=== PATIENT | female | born 1945 | race Caucasian/White ===

== ENCOUNTER 2018-08-13 04:40 | Inpatient (IN) | payer MEDICARE, OTHER ==
[~2018-08-13] VITALS: Ht 157.5 cm; Wt 51.3 kg
[~2018-08-13 04:40] MED LIST: NITROFURANTOIN100 MG PO; PREMARIN42.5 GM VAGINAL
[2018-08-13] MEDS ORDERED: ASPIRIN81 MG PO (05:02)
[2018-08-13] MEDS ORDERED: PRAVACHOL40 MG PO (05:02)
[2018-08-13] MEDS ORDERED: PROBIOTIC1 EAC4 PO (05:02)
[2018-08-13] MEDS ORDERED: SUDOGEST30 MG PO (05:03)
[2018-08-13] MEDS ORDERED: TYLENOL325 M1 PO (05:04)
--- NOTE | 2018-08-13 08:00 | NUR ---
73YR OLD WOMAN ADMITTED FROM ER VIA STRETCHER ACCOMPANIED BY . PT IS ALERT, ORIENTED ABLE TO STAND WITH SBA AND MOVE ONTO BED, WARM BLANKET FOR COMFORT, WRETCHING WITH ANY MOVEMENT, LITTLE RELIEF FROM ZOFRAN GIVEN IN ER. IV TAPED SECURELY TO RAC. IVF PATENT. DENIES NEED TO VOID, ORIENTED TO ROOM AND CALL LIGHT. DENIES NEEDS SITTING AT BEDSIDE.
--- NOTE | 2018-08-13 08:20 | NUR ---
SPOKE WITH DR CONDON AND RECIEVED ORDER FOR PHENERGAN IV. ASSISTED PT INTO BATHROOM TO VOID, CONT. TO HAVE SEVERE NAUSEA AND WRETCHING WITH ANY MOVEMENT. PHENERGAN GIVEN.
--- NOTE | 2018-08-13 08:40 | NUR ---
New admit to the floor. Pt alert and oriented x3. Pt recently received phenergan from Dishtank Operator, Rebeka. Pt states nausea is improving. Pt has no needs at this time. Call light within reach.
--- NOTE | 2018-08-13 08:54 | NUR ---
PT REPORTS NAUSEA MUCH IMPROVED, RESTING COMFORTABLY ON BED. DENIES ANY NEDDS. CALL LIGHT IN REACH.
--- NOTE | 2018-08-13 12:01 | NUR ---
ADMIN GI COCKTAIL PER PT REQUEST. PT REPORTS UPSET STOMACH.
--- NOTE | 2018-08-13 13:19 | EKG ---
[facility] [address] [place], [place] [address] Signed Normal sinus rhythm Normal ECG When compared with ECG of 19-APR-2016 23:39, No significant change was found Confirmed by REAL CONDON DO ([id number]) on 08/13/2018 1:19:20 PM Electronically Signed By: REAL CONDON DO 08/13/18 1319 PATIENT NAME: SHELTON JARAMILLOYN PERRINTON Electrocardiogram DATE OF : 49 PHYSICIAN: REAL CONDON DO REPORT #: [id number] REPORT IS CONFIDENTIAL AND NOT TO BE RELEASED WITHOUT AUTHORIZATION
--- NOTE | 2018-08-13 18:09 | NUR ---
PT A&OX3. NPO. STANDBY ASSIST. PRN MORPHINE AND ZOFRAN. NAUSEA AND ABD PAIN IMPROVED. LR@125ML/HR. PT CALLS STAFF APPROPRIATELY.
--- NOTE | 2018-08-13 19:00 | NUR ---
SHIFT REPORT RECEIVED FROM DAYSARFT BRADEN CAMP AT BEDSIDE. PT RESTING IN BED, AWAKE, RR WNL. NO DISTRESS NOTED. PT REPORTS NAUSEA AND PAIN IS IMPROVING, WILL CONTINUE TO MONITOR. IV LR AT 125 MLS/HR, IV SITE WNL. PT UP SBA TO VOID, INSTRUCTED TO USE CALL LIGHT WHEN READY TO RETURN TO BED. PT VERBALIZED UNDERSTANDING.
--- NOTE | 2018-08-13 19:27 | NUR ---
patient pulled bathroom string call light and got back into bed. she resulted in 200. BST and Call light within reach.
--- NOTE | 2018-08-13 20:01 | NUR ---
patient used call light to ask for assistance to the restroom and to sit up in the chair for a while. I got a warm blanket for her and she didnt need anything further at this time. Call light and BST in place.
--- NOTE | 2018-08-13 20:50 | NUR ---
SPOKE TO DR CONDON REGARDING PT'S DIET STATUS. PT NPO WITH EXCEPTION OF SMALL SIPS OF WATER FOR ESOPHAGEAL COMFORT. PT HAS LR INFUSING AT 125MLS/HR. DURING SHIFT REPORT, DAYSHIFT BRADEN GOODEN REPORTED THAT PT GETS LOW BS AT TIMES. DISCUSSED THIS WITH PT. PT STATES, "WHEN I WAS I WAS HIGH BS THEN THEY GAVE ME SHOTS FOR ABOUT A YEAR AND NOW I GET LOW BS SOMETIMES. BUT, I CAN TELL WHEN IT STARTS GETTING LOW". DISCUSSED ALL FINDINGS WITH DR CONDON. NEW TELEPHONE ORDERS READ BACK BY DR CONDON FOR ACCU CHECKS Q6H. NO ADDITIONAL ORDERS.
--- NOTE | 2018-08-13 21:32 | NUR ---
ASSESSMENT COMPLETE. PT A/OX4, RATES PAIN 10/05, BUT DENIES NEED FOR PAIN MEDICATION AT THIS TIME. PT STATES, "I DON'T WANT ANYTHING FOR IT RIGHT NOW, I'LL LETCHA KNOW WHEN". IV SITE WNL, IV FLUIDS HUNG PER MD ORDERS. BOWEL TONES ACTIVE, PT REPORTS NAUSEA IS "BETTER NOW" AND DENIES NEED FOR NAUSEA MEDICATION AT THIS TIME. PT ASSISTED SBA BACK TO BED AFTER VOIDING. NO ADDITIONAL NEEDS, CALL LIGHT IN REACH.
--- NOTE | 2018-08-13 21:45 | NUR ---
DR CONDON MADE AWARE OF PT'S 2100 ACCUCHECK RESULT OF 79. PT DENIES SYMPTOMS OF HYPOGLYCEMIA. NEW VERBAL ORDERS READ BACK FROM DR CONDON FOR D5LR AT 125 MLS/HR.
--- NOTE | 2018-08-13 22:28 | NUR ---
PRN MORPHINE AND PRN ZOFRAN ADMINISTERED TO PT BY HORSE RACING ANALYST AGUSTIN FOR NAUSEA AND ABDOMINAL PAIN. D5LR @ 125 MLS/HR HUNG BY HORSE RACING ANALYST AGUSTIN.
--- NOTE | 2018-08-13 23:24 | NUR ---
PT RESTING IN BED, EYES CLOSED, RR WNL. NO DISTRESS NOTED. PT APPEARS COMFORTABLE. IV FLUIDS INFUSING PER MD ORDERS. CALL LIGHT IN REACH.
--- NOTE | 2018-08-14 01:20 | NUR ---
PT UP SBA TO VOID. PT TOLERATED AMBULATION. PT RETURNED TO BED, DENIES ADDITIONAL NEEDS. CALL LIGHT IN REACH. IV FLUIDS INFUSING PER MD ORDERS, IV SITE WNL.
--- NOTE | 2018-08-14 03:00 | NUR ---
ASSESSMENT COMPLETE, NO NEW CONCERNS OF ISSUES. PT A/OX4, RATES PAIN 6/10 IN ABDOMEN ALONG WIHT MILD NAUSEA. PRN ZOFRAN AND MORPHINE ADMINISTERED. IV FLUIDS INFUSING PER MD ORDERS, IV SITE WNL. 0300 ACCUCHECK RESULT OF 116. PT NPO, BOWEL TONES ACTIVE. PT RECENTLY UP TO VOID, SBA TO BATHROOM. PT NOW RESTING IN BED. VSS AND RECORDED. PT DENIES ADDITIONAL NEEDS, CALL LIGHT IN REACH.
--- NOTE | 2018-08-14 04:40 | NUR ---
PT SLEPT ON AND OFF THIS SHIFT. VSS, PT ON RA, RR WNL. A/O X4, PAIN CONTROLLED WITH PRN MORPHINE. SBA WITH AMBULATION, USES CALL LIGHT APPROPERAITELY. PT NPO WITH EXCEPTION OF SMALL SIPS OF WATER FOR COMFORT. BOWEL TONES ACTIVE, NAUSEA CONTROLLED WITH ZOFRAN. D5LR@125 MLS/HR, IV SITE WNL. Q6H ACCUCHECKS. GI COCKTAIL GIVEN X1.
--- NOTE | 2018-08-14 06:15 | NUR ---
NEW BAG OF IV FLUIDS INFUSING PER MD ORDERS, IV SITE WNL. PRN GI COCKTAIL ALSO ADMINISTERED PER PT REQUEST. NO FURTHER NEEDS, CALL LIGHT IN REACH.
--- NOTE | 2018-08-14 07:01 | NUR ---
1 MG PRN MORPHINE AND PRN ZOFRAN ADMINISTERED FOR 6/10 PAIN IN ABDOMEN AND NAUSEA. IV FLUIDS INFUSING PER MD ORDERS, IV SITE WNL. PT DENIES ADDITIONAL NEEDS, CALL LIGHT IN REACH.
--- NOTE | 2018-08-14 11:10 | NUR ---
ASSUMED CARE FROM REKHA FELICIANO. PT SITTING UP IN BED WATCHING TV. REPORTS 6/10 ABD PAIN AND NAUSEA. MEDICATED WITH IV MORPHINE AND ZOFRAN. PT ALERT AND ORIENTED. ASSESSMENT COMPLETED. IV INFUSING WNL. CALL LIGHT WITHIN REACH.
--- NOTE | 2018-08-14 14:00 | NUR ---
PT SBA TO RESTROOM. MEDICATED WITH 0.3MG IV DILAUDID FOR 7/10 PAIN. AMB BACK TO BED. AT BEDSIDE. CALL LIGHT WITHIN REACH.
--- NOTE | 2018-08-14 15:44 | NUR ---
ADMIN ZOFRAN 4MG IVP FOR REPORTS OF NAUSEA.
--- NOTE | 2018-08-14 16:20 | NUR ---
PT ATTEMPTED TO ADVANCE TO CLEAR LIQUIDS FROM JUST WATER. HAD INCREASED PAIN AND NAUSEA. PT STATES SHE WILL CUT BACK TO JUST SIPS OF WATER AGAIN PER DR. CONDON. PT MEDICATED WITH IV DILAUDID AND GI COCKTAIL. AT BEDSIDE. CALL LIGHT WITHIN REACH.
--- NOTE | 2018-08-14 18:02 | NUR ---
PT SBA TO RESTROOM. BACK TO BED. DENIES PAIN OR NAUSEA AT THIS TIME. TAKING SMALL SIPS OF WATER. CALL LIGHT WITHIN REACH.
--- NOTE | 2018-08-14 19:10 | NUR ---
SHIFT REPORT RECEIVED. PATIENT IN BED. DENIES NEEDS AT THIS TIME. REPORTS CONCERNS WITH FREQUENT URINATION. URINE COLLECTED APPEARS CLEAR WITHOUT ODOR. PATIENT HAS CONTINUOUS IV FLUIDS AND IS DRINKING WATER. WILL REPORT TO MD AT APPROPRIATE TIME.
--- NOTE | 2018-08-14 20:55 | NUR ---
EVENING MEDS PROVIDED PER ORDER. MD IN TO SEE PATIENT, WHICH SHE WAS ABLE TO VERBALIZE HER CONCERNS WITH URINARY URGENCY. VERBAL ORDER RECEIVED TO REDUCE IV FLUIDS TO 50ML/HR. PATIENT REPORTS 7/10 PAIN. PRN PAIN MEDS PROVIDED WITH PRN ZOFRAN FOR MILD NAUSEA. ABD IS TENDER THROUGHOUT. PATIENT TOLERATING SMALL SIPS OF WATER WITHOUT EMESIS. URINE OUTPUT QS. PATIENT AMBULATED IN THE HALLWAY, APPEARS STEADY ON HER FEET. NO OTHER NEEDS AT THIS TIME.
--- NOTE | 2018-08-14 21:43 | NUR ---
ROUNDED CHARGE. PATIENT IS RESTING IN BED. PATIENT DENIES ANY COMMENTS, QUESTIONS, OR CONCERNS. NO NEEDS NOTED. CALL LIGHT IN REACH.
--- NOTE | 2018-08-14 22:03 | NUR ---
PER PT REQUEST I GOT THE STANDING SCALE AND WEIGHED PT. ALSO WEIGHED HER IN THE BED WELL. BEDSIDE TABLE AND CALL LIGHT IN REACH. ALSO HELPED PT TO THE BATHROOM AND BACK TO BED. PT NEEDS NOTHING MORE AT THIS TIME.
--- NOTE | 2018-08-14 23:00 | NUR ---
PATIENT'S IV SITE INFILTRATED. NEW IV SITE PLACED BY DEJUAN FELICIANO. PATIENT TOLERATED WELL. PATIENT UP TO VOID AND THEN INTO BED. DENIES ANY NEEDS AT THIS TIME. IS SITTING UP IN BED READING. PAIN 6/10. NO NAUSEA.
--- NOTE | 2018-08-15 00:01 | NUR ---
PATIENT UP TO THE BATHROOM WITH PERSONNEL PSYCHOLOGIST JUNE. PATIENT REQUEST PRN PAIN MEDS FOR PAIN 10/05. PRN DILAUDID PROVIDED. NO OTHER NEEDS AT THIS TIME. IV SITE WNL. NO NAUSEA. CALL LIGHT IN REACH.
--- NOTE | 2018-08-15 02:33 | NUR ---
PATIENT REQUESTING PRN PAIN MEDS FOR 6/10 PAIN, WHICH WAS PROVIDED. PATIENT REPORTS HAVING SLEPT A FEW HOURS AND HAD TO GET UP TO USE THE BATHROOM. DENIES ANY FURTHER NEEDS.
--- NOTE | 2018-08-15 05:11 | NUR ---
PATIENT REPORTS SLEEPING WELL THIS SHIFT. PRN DILAUDID X3. MINIMAL TO NO NAUSEA, PATIENT REQUEST PRN ZOFRAN X2. TOLERATED SIPS OF WATER. SBA TO BATHROOM, OUTPUT QS. IV FLUIDS REDUCED DUE TO URGENCY/FREQUENCY WHICH HAS RESOLVED. ROOM AIR. VS STABLE. AMBULATED IN HALLWAY X2.
--- NOTE | 2018-08-15 05:11 | NUR ---
PATIENT UP TO VOID. DENEIS NEED FOR PRN PAIN MEDS AT THIS TIME. STATES "I'D LIKE TO WAIT AN HOUR". PATIENT GOING TO AMBULATE IN HALLWAY.
--- NOTE | 2018-08-15 05:49 | NUR ---
VITALS AND I&OS DONE AND CHARTED. BEDSIDE TABLE AND CALL LIGHT IN REACH. FRESH ICE WATER GIVEN
--- NOTE | 2018-08-15 06:00 | NUR ---
PATIENT REPORTS PAIN 10/05 AND REQUEST PRN PAIN MEDS, WHICH WERE PROVIDED. PATIENT DENIES NEED FOR PRN ZOFRAN AT THIS TIME. STATES "I'M JUST TAKING SIPS AND I THINK I'M DOING ALRIGHT".
--- NOTE | 2018-08-15 06:45 | NUR ---
PRN ZOFRAN AND TORADOL PROVIDED. PATIENT REPORTS ONGOING 10/05 PAIN. DENIES FUTHER NEEDS.
--- NOTE | 2018-08-15 08:38 | NUR ---
PT SITTING UP IN BED AWAKE TAKING SMALL SIPS OF WATER. RATING PAIN 6/10, MEDICATED WITH PRN TYLENOL DENIES NAUSEA. ALERT AND ORIENTED BUT SLIGHTLY FORGETFUL AT TIMES. IV INFUSING WNL IN RIGHT AC. PT AMB WITH MINIMAL SBA TO RESTROOM. AMD TO RECLINER. SITTING UP IN RECLINER. CALL LIGHT WITHIN REACH.
--- NOTE | 2018-08-15 11:16 | NUR ---
PATIENT UP TO SHOWER AND BACK TO BED, IND. PATIENT INDEPENDENT IN SHOWER. FRESH GOWN PROVIDED. LINENS CHANGED. CALL LIGHT IN REACH. NO FURTHER NEEDS AT THIS TIME.
--- NOTE | 2018-08-15 11:20 | NUR ---
PT SHOWERED WITH MINIMAL ASSIST. BACK TO BED AT THIS TIME. DENIES NEEDS OR CONCERNS. CALL LIGHT WITHIN REACH.
--- NOTE | 2018-08-15 13:03 | NUR ---
PT REPORTS THAT SHE HAS NO TROUBLE DRINKING TEA BUT THAT THE CHICKEN BROTH CAUSED IMMEDIATE SEVERE ABD PAIN. REQUESTING PAIN AND NAUSEA MEDICATION. PT SITTING UP IN BED, TALKING AND LAUGHING VISITING WITH A COUPLE FRIENDS AT THE BEDSIDE. MEDICATED WITH PRN DILAUDID AND ZOFRAN. CALL LIGHT WITHIN REACH.
--- NOTE | 2018-08-15 13:07 | NUR ---
HAVE MADE SEVERAL ATTEMPTS TO VISIT PT-EITHER STAFF OR A RM FULL OF VISITORS. WILL CONTINUE TO FOLLOW
--- NOTE | 2018-08-15 14:01 | NUR ---
VS AND I&O'S TAKEN AND DOCUMENTED. PT STATES SHE HAS NO NEEDS AT THIS TIME. INFORMED PT TO CALL IF SHE THINKS OF ANYTHING SHE NEEDS. CALL LIGHT IS IN REACH.
--- NOTE | 2018-08-15 15:00 | NUR ---
CALLED TO REPORT PT IS ITCHING FROM POSSIBLE SHOWER SOAPS, SHE WOULD LIKE BENEDRYL. ORDERED 25MG PO BENEDRYL NOW.
--- NOTE | 2018-08-15 15:57 | NUR ---
PT REPORTS ITCHING "ALL OVER", NO RASH NOTED. MEDICATED WITH ONE TIME PRN BENADRYL. PT GIVEN FRESH ICE WATER AND TEA. AT BEDSIDE. CALL LIGHT WITHIN REACH.
--- NOTE | 2018-08-15 18:04 | NUR ---
PT ATE JELLO AND BITES OF YOGURT. MARGARITA WELL SO FAR. STATES "I FEEL GOOD." CALL LIGHT WITHN REACH.
--- NOTE | 2018-08-15 19:20 | NUR ---
SHIFT REPORT RECEIVED. PATIENT RESTING IN BED. REPORTS GOOD PAIN CONTROL AND DENIES NAUSEA. STATES HER APPETITE IS MINIMAL.
--- NOTE | 2018-08-15 20:16 | NUR ---
PATIENT UP AMBULATING IN HALLWAY WITH FRIEND. APPEARS STEADY ON HER FEET.
--- NOTE | 2018-08-15 21:43 | NUR ---
PATIENT RESTING IN BED WATCHING TV. DENIES NEEDING PRN PAIN MEDS AT THIS TIME. RATES PAIN 6/10. NO NAUSEA. TOLERATING CLEAR LIQUIDS AND APPLE SAUCE. ITCHING HAS RESOLVED. ABD SOFT, BOWEL SOUNDS ACTIVE. LUNGS ARE CLEAR. PATIENT APPEARS TO BE ANXIOUS AND FIGGETING BUT DENIES HAVING ANY CONCERNS. ENCOURAGED PATIENT TO REST. IV FLUIDS PER ORDER. SITE WNL.
--- NOTE | 2018-08-15 22:45 | NUR ---
PT CALLED. IV ALARMING. FIXED, THEN PT UP TO BATHROOM INDEPENDENTLY. WILL CALL WHEN BACK IN BED.
--- NOTE | 2018-08-15 23:45 | NUR ---
PATIENT APPEARS TO BE SLEEPING SOUNDLY. RR 18. CALL LIGHT IN REACH. ALLOWED TO REST.
--- NOTE | 2018-08-16 02:00 | NUR ---
PATIENT APPEARS TO BE SLEEPING SOUNDLY. DID NOT WAKE WHEN RN ENTERED ROOM. ALLOWED PATIENT TO REST. RR 19. CALL LIGHT IN REACH.
--- NOTE | 2018-08-16 03:45 | NUR ---
PATIENT UP TO THE BATHROOM. REQUEST PRN PAIN MEDS. DENIES NAUSEA. PATIENT STATES SHE SLEPT WELL THIS SHIFT.
--- NOTE | 2018-08-16 05:24 | NUR ---
PATIENT SLEPT WELL THIS SHIFT. PRN PAIN MEDS X1. NO NAUSEA. TOLERATING YOGURT, APPLE SAUCE AND CLEAR LIQUIDS. OUTPUT QS. IV FLUIDS PER ORDER. INDEPENDENT IN THE ROOM. AMBULATING IN HALLWAY WHILE AWAKE. OCCATIONAL ANXIETY ABOUT CURRENT ILLNESS.
--- NOTE | 2018-08-16 07:05 | NUR ---
RECIEVED BEDSIDE REPORT FROM BRADEN WOODWARD. PT IN BED, AWAKE, ALERT. PERSONAL SUPPLIES AND CALL LIGHT IN REACH.
--- NOTE | 2018-08-16 09:14 | NUR ---
PT C/O 7/10 LEFT ABDOMINAL PAIN. GAVE OXYCODONE 10 MG PO PRN. PT DENIED OTHER NEEDS.
--- NOTE | 2018-08-16 10:49 | NUR ---
PATIENT UP IN HALLWAYS AMBULATING WITH . PATIENT NOW IN BED WATCHING TV. FRESH WATER GIVEN. CALL LIGHT IN REACH. NO FURTHER NEEDS AT THIS TIME. PATIENT REFUSED SHOWER SAID SHE HAD ONE YESTURDAY AND WILL TAKE ONE TOMRROW.
--- NOTE | 2018-08-16 11:28 | NUR ---
PT UP WALKING WITH JOELLEN. SHE IS FEELING BETTER, VISITING WITH PEOPLE SHE AMBULATES HALLWAY. SHE CHECKED IN WITH ME AND INQUIRED HOW I WAS DOING. PT SEEMS TO ENJOY GETTING OUT OF RM. EXTENDED A BLESSING, WILL FOLLOW NEEDED.
--- NOTE | 2018-08-16 11:54 | NUR ---
DR. DUARTE IN TO ROUND ON PT. PT EATING POTATOES WITH PROMISE BUTTER SUBSTITUTE, DRINKING TEA AND ICE WATER. PT REPORTS NAUSEA IS CONTROLLED AT THIS TIME. PT REPORTS PAIN IS "TOLERABLE" AT THIS TIME.
[2018-08-16] MEDS ORDERED: EZETIMIBE10 MG PO (12:39)
[2018-08-16] MEDS ORDERED: WOMEN'S DAILY1 EAC2 PO (12:40)
[2018-08-16] MEDS ORDERED: CALCIUM + D SO1 EACH PO (12:42)
[2018-08-16] MEDS ORDERED: HAIR, SKIN & N1 EACH PO (12:44)
[2018-08-16] MEDS ORDERED: GAVISCON ES TA1 EACH PO (12:44)
[2018-08-16] MEDS ORDERED: BENADRYL25 MG PO (12:45)
[2018-08-16] MEDS ORDERED: ADVIL200 MG PO (12:45)
--- NOTE | 2018-08-16 12:46 | NUR ---
MED REC COMPLETE
--- NOTE | 2018-08-16 13:22 | NUR ---
PT C/O 10/05 ABDOMINAL PAIN, GAVE OXYCODONE 10 MG PO PRN. PT IN BED, SITTING UP. ALERT, ORIENTED X 3. DENIED OTHER NEEDS.
--- NOTE | 2018-08-16 14:52 | NUR ---
PATIENT IN BED WATCHING TV, BEDSIDE. FRESH WATER GIVEN. CALL LIGHT IN REACH. NO FURTHER NEEDS AT THIS TIME.
--- NOTE | 2018-08-16 15:06 | NUR ---
PT UP, AMBULATING IN HALLS WITH AT SIDE. TOLERATING WELL. STEADY ON FEET.
--- NOTE | 2018-08-16 18:13 | NUR ---
PT HAS HAD C/O ABDOMINAL PAIN, WITH MILD WORSENING AFTER EATING THIS SHIFT. PRN OXYCODONE CONTROLLING PAIN EFFECTIVELY PER PT. NO EMESIS THIS SHIFT. PT ON LOW FAT DIET. TOLERATED POTATOE FOR LUNCH, RICE, APPLESAUCE, YOGURT, AND COFFEE FOR DINNER. ATE 100% OF SMALL LUNCH, 50% OF MODERATE SIZED DINNER. PT UP INDEPENDANTLY IN ROOM AND AMBULATED IN HALLS MULTIPLE TIMES THIS SHIFT. PT HAS DENIED LIGHTHEADEDNESS OR DIZZINESS THROUGHOUT SHIFT. PLAN IS FOR PT TO POTENTIALLY DISCHARGE TO HOME TOMORROW. PT HAS D5LR INFUSING AT 50ML/HR, IV TO BE SALINE LOCKED ONCE CURRENT BAG INFUSION IS COMPLETE PER DR. DUARTE.
--- NOTE | 2018-08-16 18:29 | NUR ---
PATIENT IN BED WATCHING TV. CALL LIGHT IN REACH. NO FURTHER NEEDS AT THIS TIME.
--- NOTE | 2018-08-16 19:10 | NUR ---
CHARGE NURSE ROUNDS. PT IN ROOM, IN BED, WITH EYES CLOSED.
--- NOTE | 2018-08-16 19:12 | NUR ---
IN ROOM FOR REPORT, PT IS AWAKE IN BED AND DENIES NEEDS AT THIS TIME. CALL LIGHT IS WITHIN REACH.
--- NOTE | 2018-08-16 20:44 | NUR ---
PT UP AMBULATING WITH HER FRIEND, CADENCE DE JESUS. STATED SHE FELT BETTER TODAY THAN SHE HAS THIS "WEEK".
--- NOTE | 2018-08-16 21:51 | NUR ---
ASSESSED PT AND ADMINISTERED MEDICATIONS FOR PAIN/NAUSEA. SHE REPORTS ABD PAIN 5/10. PT REPORTS PASSING GAS BUT HAS NOT HAD A BM YET. PT WALKED THE MALIN EARLIER. SHE DENIES NEEDS AT THIS TIME. CALL LIGHT IS WITHIN REACH.
--- NOTE | 2018-08-16 22:56 | NUR ---
PT IS RESTING WITH EYES CLOSED, RESPIRATIONS ARE EVEN AND NONLABORED. CALL LIGHT IS WITHIN REACH.
--- NOTE | 2018-08-17 00:58 | NUR ---
PT'S IV BAG IS COMPLETE AND PT'S IV IS NOW SL. PT DENIES NEEDS AT THIS TIME. CALL LIGHT IS WITHIN REACH.
--- NOTE | 2018-08-17 02:26 | NUR ---
PT IS RESTING WITH EYES CLOSED, RESPIRATIONS ARE EVEN AND NONLABORED. CALL LIGHT IS WITHIN REACH.
--- NOTE | 2018-08-17 03:45 | NUR ---
PT IS RESTING WITH EYES CLOSED, RESPIRATIONS ARE EVEN AND NONLABORED. CALL LIGHT IS WITHIN REACH.
--- NOTE | 2018-08-17 05:50 | NUR ---
PT REPORTS PAIN 4.5 AT THIS TIME AND DENIES THE NEED FOR PAIN MEDICINE. SHE IS DOING WELL AT THIS TIME AND DENIES NEEDS.
--- NOTE | 2018-08-17 06:50 | NUR ---
IN ROOM TO ADMINISTER PAIN MEDICATION AND ANTINAUSEA MEDS. PT DENIES FURTHER NEEDS AND CALL LIGHT IS CLOSE.
--- NOTE | 2018-08-17 07:47 | NUR ---
BEDSIDE REPORT RECIEVED. CALL LAZARO IS WITHIN REACH, PT IN NO DISTRESS AT THIS TIME.
[2018-08-17] MEDS ORDERED: OXYCODONE HCL5 MG PO (10:32)
[2018-08-17] MEDS ORDERED: ONDANSETRON ODT4 MG SL (10:33)
--- NOTE | 2018-08-17 11:30 | NUR ---
PT SPEAKING WITH PHARMACY AT THIS TIME.
--- NOTE | 2018-08-17 12:52 | NUR ---
PT DC'D AT THIS TIME. PT BEING TAKEN HOME BY HER FRIEND.
--- NOTE | 2018-08-17 13:09 | NUR ---
PT WAS AMBULATING HALLS AND STOPPED BY MY OFFICE. PT IS FULL OF PERSONALITY AND SAID SHE WOULD LIKE TO BE DC'D TODAY. SHE SAID SHE NEEDS TO WALK MORE, I EXTENDED A BLESSING AND WILL FOLLOW NEEDED
== END 2018-08-17 12:50 | disposition home or self-care (01) | DRG 440 ==
LOC: ED 04:40 → MS 04:42
PROVIDERS: ADMIT Student in an Organized Health Care Education/Training Program
DX: K85.00 Idiopathic acute pancreatitis without necrosis or infection (principal); R74.0 Nonspecific elevation of levels of transaminase and lactic acid dehydrogenase [LDH]; K21.9 Gastro-esophageal reflux disease without esophagitis; E78.5 Hyperlipidemia, unspecified; Z90.49 Acquired absence of other specified parts of digestive tract; Z66 Do not resuscitate; Z79.82 Long term (current) use of aspirin; Z79.899 Other long term (current) drug therapy; Z88.1 Allergy status to other antibiotic agents; Z88.5 Allergy status to narcotic agent
CPT/HCPCS: 36415; 71046; 74177; 80053; 80074; 80176; 81001; 82787; 83690; 83735; 84100; 84478; 84484; 85025; 85610; 93005; 93010; 99285-25; C9113; G0480; J1170; J1650; J1885; J2270; J2405; J2550; J3480; J7040; J7060; J7120; Q0177

== ENCOUNTER 2019-04-12 13:54 | Emergency (ER) | payer MEDICARE, OTHER ==
[~2019-04-12] VITALS: Ht 157.5 cm; Wt 46.3 kg
[~2019-04-12 13:54] MED LIST changes: +ADVIL200 MG PO; +ASPIRIN81 MG PO; +BENADRYL25 MG PO; +CALCIUM + D SO1 EACH PO; +EZETIMIBE10 MG PO; +GAVISCON ES TA1 EACH PO; +HAIR, SKIN & N1 EACH PO; +ONDANSETRON ODT4 MG SL; +OXYCODONE HCL5 MG PO; +PRAVACHOL40 MG PO; +PROBIOTIC1 EAC4 PO; +SUDOGEST30 MG PO; +TYLENOL325 M1 PO; +WOMEN'S DAILY1 EAC2 PO
[2019-04-12] MEDS ORDERED: NORCO 5-325 TA1 EACH PO (19:54)
[2019-04-12] MEDS ORDERED: ONDANSETRON ODT8 MG PO (19:54)
[2019-04-12] MEDS ORDERED: OMEPRAZOLE20 MG PO (19:54)
== END 2019-04-12 20:22 | disposition home or self-care (01) ==
LOC: ED 13:54
DX: K52.9 Noninfective gastroenteritis and colitis, unspecified (principal); K85.90 Acute pancreatitis without necrosis or infection, unspecified; K21.9 Gastro-esophageal reflux disease without esophagitis; E78.5 Hyperlipidemia, unspecified; Z88.8 Allergy status to other drugs, medicaments and biological substances; Z88.1 Allergy status to other antibiotic agents; Z88.5 Allergy status to narcotic agent; Z79.899 Other long term (current) drug therapy; Z79.82 Long term (current) use of aspirin
CPT/HCPCS: 80053; 81001; 83690; 83735; 85025; 96361; 96374; 96375; 99284-25; C9113; J2405; J7030